=== PATIENT | male | born 1960 | race Hispanic/Latino ===

== ENCOUNTER 2017-01-13 09:54 | Day surgery (SDC) | payer OTHER ==
[2017-01-13] MEDS ORDERED: Lidocaine 1% Inj (20ml) ONE (10:10)
--- NOTE | 2017-01-13 10:21 | CP.SDSHP ---
Same Day Surgery H & P - History Proposed Procedure: removal foregin body right foot Pre-Op Diagnosis: pain to right foot (foreign body) - Previous Medical/Surgical History Pain: 5. Previous Surgical History: denies - Allergies Allergies: denies - Physical Exam Mental Status: Alert & Oriented x3 Neuro: WNL - {Optional Preform as Required} Integument: WNL Ortho: Other (tenderness to deep palpation of plantar lateral sub 5th met) - Impression Impression: Pt S&E in SDS. All pre-op testing in chart. Pt agreeable for surgery today. Local anesthesia only. No guarantees given nor implied - Date & Time Date: 01/13/17 Time: 10:00 Short Stay Discharge - Short Stay Discharge Admitting Diagnosis/Reason for Visit: Z18.8 Disposition: HOME/ ROUTINE Referrals: [facility] Wilbur Realber, [Primary Care Provider] - Faraz Pacheco DPM [Staff Provider] - Additional Instructions (Diet, Activity): keep dressing clean dry intact right foot (do not get dressing wet) take pain meds as prescribed as needed follow up in the office with Dr. Pacheco within 1 week Progress Note/Discharge Note with Instructions: VSS, neurovascular status intact to right foot. Pt is stable for discharge home once recovery criteria met
[2017-01-13 10:41] VITALS: RESP 18
[2017-01-13] MEDS: Bupivacaine 0.5% Inj(30mL) ONE ×2 (10:55→11:42)
[2017-01-13 11:16] VITALS: O2SAT 97
[2017-01-13 11:17] VITALS: BMI 26.8
--- NOTE | 2017-01-13 12:03 | PCM.SURG1 ---
Surgeon's Initial Post Op Note - Surgeon's Notes Surgeon: Dr. Pacheco Publicity Manager: Dr. Ema Haile PGY-2 Type of Anesthesia: Local Anesthesia Administered By: none Pre-Operative Diagnosis: foreign body right foot Operative Findings: see operative report Post-Operative Diagnosis: same Operation Performed: removal foreign body right foot Specimen/Specimens Removed: sea urchin spine x 1 right foot Estimated Blood Loss: EBL {In ML}: 1 Blood Products Given: N/A Drains Used: No Drains Post-Op Condition: Good Date of Surgery/Procedure: 01/13/17 Time of Surgery/Procedure: 10:35
[2017-01-13 12:10] VITALS: BP 166/86; PULSE 76; TEMP 97.5
--- NOTE | 2017-01-13 15:09 | RAD ---
PROCEDURE: Fluoroscopy up to 1 hour HISTORY: RT FOOT FB REMOVAL COMPARISON: TECHNIQUE: Fluoroscopy was provided in the operating room. 4.7 seconds of fluoroscopy time. Four images were submitted FINDINGS: A needle is seen lateral to the head of the 5th metatarsal IMPRESSION: As above
--- NOTE | 2017-01-14 07:30 | OP ---
PROCEDURE DATE: 01/13/2017 SURGEON: Dr. Pacheco. DEVICE PROCESSING ENGINEER: Dr. Alexandria Haile, PGY2. CASEWORKER PROTECTIVE SERVICES: None. ANESTHESIA: Local anesthesia only. PREOPERATIVE DIAGNOSIS: Foreign body of the right foot. POSTOPERATIVE DIAGNOSIS: Foreign body of the right foot. NAME OF THE PROCEDURE: Removal of foreign body of the right foot. INDICATIONS: The patient is a 56-year-old male with the above diagnosis. Of note, the patient had recently traveled to [place], where he sustained puncture wounds of the right foot with sea urchins. While on vacation, the patient states that he had many of the urchin parts removed while he was in [place]. Patient also states that he had several sea urchin spines removed from his foot in the office with Dr. Pacheco but continued to have pain to the right foot with ambulation. The patient has exhausted all conservative treatments at this time, and he is now requesting surgical intervention for removal of retained foreign bodies in the right foot. The patient signed the consent form and was provided with careful explanation of all risks, benefits, complications and alternatives for surgical procedure. No guarantees were given nor implied. NPO status was confirmed prior to taking patient to the operating room. PREPARATION: The patient was brought to the operating room and placed on the operating room table in supine position. Anesthesia was not required for this procedure. A total of 8 mL of 1:1 mixture of 0.5% Marcaine plain and 1% lidocaine plain was then injected into right foot in local block fashion. Once adequate local anesthesia was achieved, the right foot was then prepped and draped in an usual sterile manner. Tourniquet was not required for this procedure and the procedure began. PROCEDURE: Removal of foreign body right foot. Attention was then directed to the lateral aspect of the fifth MTPJ of the right foot using a #18 gauge needle. Intraoperative imaging was utilized to triangulate the foreign body in question and an approximately 2 cm linear longitudinal incision was then made at the lateral aspect of the fifth MTPJ. The incision was then deepened through subcutaneous tissue with care being taken to identify and retract all vital neurovascular structures, bleeders were cauterized and ligated as necessary. At this time, the foreign body in question was identified and appeared to be encapsulated with soft tissue. Utilizing a one-two pick-up, the foreign body in question was then removed from the soft tissue of the right foot in total and was passed from the operative field to be sent for pathology. Intraoperative imaging was then utilized to check for any remaining foreign bodies to the right foot. Intraoperative imaging confirmed that there were no further foreign bodies in the right foot. At this time, normal sterile saline was then utilized to copiously flush the surgical site using #2-0 Vicryl suture, the deep subcutaneous layers were re-approximated followed by the superficial subcutaneous layers. Using #4-0 nylon sutures, the skin edges were then re-approximated using simple suture technique. The foot was then cleansed with sterile saline and dried sterilely. The incision site was then dressed with Betadine soaked Adaptic, DSD, Kerlix and a Coban compressive dressing. POSTOPERATIVE CONDITION: The patient tolerated the procedure well and was escorted to the recovery room, vital signs stable, and neurovascular status intact to the right foot. The patient will be weightbearing as tolerated but in the surgical shoe and to keep the dressing clean, dry and intact. The patient will follow up with Dr. Pacheco as an outpatient within one week. Alexandria Haile DPM [facility]
== END 2017-01-13 12:35 | disposition home or self-care (01) ==
LOC: OPSURG 09:54
PROVIDERS: ATTEND Podiatrist
DX: S90.851A Superficial foreign body, right foot, initial encounter (principal); W45.8XXA Other foreign body or object entering through skin, initial encounter; F31.9 Bipolar disorder, unspecified; F41.9 Anxiety disorder, unspecified; F32.89 Other specified depressive episodes; E78.5 Hyperlipidemia, unspecified; R03.0 Elevated blood-pressure reading, without diagnosis of hypertension; E78.00 Pure hypercholesterolemia, unspecified; M65.331 Trigger finger, right middle finger; F17.210 Nicotine dependence, cigarettes, uncomplicated; Z80.3 Family history of malignant neoplasm of breast; Z81.1 Family history of alcohol abuse and dependence